=== PATIENT | female | born 1970 | race Caucasian/White ===

== ENCOUNTER 2016-07-21 18:55 | Inpatient (IN) | payer MEDICAID ==
[~2016-07-21] VITALS: Ht 165.1 cm; Wt 83.5 kg
[2016-07-21] MEDS ORDERED: KETOROLAC 30 MG INJ IV STA (20:07)
[2016-07-21] MEDS ORDERED: ONDANSETRON 4 MG INJ IV STA (20:07)
[2016-07-21] MEDS ORDERED: morphine 4 MG/ML VIAL IV STA (20:07)
[2016-07-21] MEDS ORDERED: SOD CHLORIDE 0.9% 100 ML ONE (20:21)
[2016-07-21] MEDS ORDERED: IOHEXOL 300MG/ML 150 ML BTL ONE (20:21)
--- NOTE | 2016-07-21 20:22 | ERD ---
ER Documentation Chief Complaint Date/Time DATE: 07/21/16 TIME: 20:17 Chief Complaint vaginal pain/blister/dysuria since yesterday. HPI 45-year-old female presents to emergency department for complaints of pain in the vaginal area started yesterday. Patient is complaining of pain in the vaginal wall area, throbbing pain, 8/10 scale, is worse upon urination. Patient' s feels that there is a blister in the area. Patient had the same type of symptoms 6 months ago, was given medication for 2 days and it went away, cannot remember what medication was. Patient denies any flank pain. Patient denies hematuria or dysuria. Patient denies any cough or any congestion. Patient denies any sore throat. Patient denies any blood in the urine. Patient denies any pustular discharge from the vaginal area. ROS All systems reviewed and are negative except as per history of present illness. Medications Home Meds Reported Medications [none] Unknown Strength No Conflict Check 07/21/16 Allergies Allergies: Coded Allergies: Penicillins (Verified Allergy, Unknown, 07/21/16) PMhx/Soc History of Surgery: Yes () Anesthesia Reaction: No Hx Neurological Disorder: No Hx Respiratory Disorders: No Hx Cardiac Disorders: No Hx Psychiatric Problems: No Hx Miscellaneous Medical Probl: No Hx Alcohol Use: No Hx Substance Use: No Hx Tobacco Use: No Smoking Status: Never smoker FmHx Family History: No coronary disease, No diabetes, No other Physical Exam Vitals Vital Signs Date Time Temp Pulse Resp B/P Pulse Ox O2 Delivery O2 Flow Rate FiO2 07/21/16 19:04 100.3 128 20 127/88 99 Physical Exam GENERAL: The patient is well developed and appropriate for usual state of health, in no apparent distress. CHEST: Clear to auscultation bilaterally. There are no rales, wheezes or rhonchi. HEART: Regular rate and rhythm. No murmurs, clicks, rubs or gallops. No S3 or S4. ABDOMEN: Soft, nontender and nondistended. Good bowel sounds. No rebound or guarding. No gross peritonitis. No gross organomegaly or masses. No Miller sign or McBurney point tenderness. BACK: No midline or flank tenderness. EXTREMITIES: Equal pulses bilaterally. There is no peripheral clubbing, cyanosis or edema. No focal swelling or erythema. Full range of motion. Grossly neurovascularly intact. NEURO: Alert and oriented. Cranial nerves 2-12 intact. Motor strength in all 4 extremities with 5/5 strength. Sensation grossly intact. Normal speech and gait. SKIN: There is no apparent rash or petechia. The skin is warm and dry. HEMATOLOGIC AND LYMPHATIC: There is no evidence of excessive bruising or lymphedema. No gross cervical, axillary, or inguinal lymphadenopathy. : Noted palpable prolapsed bladder, no cervical motion tenderness, no Bartholin cyst abscess, no lesions, no blisters noted in the perineal area. Cervical os is closed. No adnexal tenderness noted. Result Diagram: 07/21/16201907/21/162019 Results 24 hrs Laboratory Tests Test 07/21/16 20:20 Alanine Aminotransferase (ALT/SGPT) 11IU/L Albumin 4.1g/dl Albumin/Globulin Ratio 0.93 Alkaline Phosphatase 135IU/L Anion Gap 18 Aspartate Amino Transf (AST/SGOT) 14IU/L Basophils # 0.010^3/ul Basophils % 0.2% Blood Morphology Comment Blood Urea Nitrogen 12mg/dl Calcium Level 9.5mg/dl Carbon Dioxide Level 29mmol/L Chloride Level 98mmol/L Creatinine 0.60mg/dl Direct Bilirubin 0.00mg/dl Eosinophils # 0.010^3/ul Eosinophils % 0.1% Globulin 4.40g/dl Glucose Level 306mg/dl Hematocrit 41.4% Hemoglobin 14.0g/dl Indirect Bilirubin 0.7mg/dl Lactic Acid Level 1.4mmol/L Lipase 54U/L Lymphocytes # 1.110^3/ul Lymphocytes % 6.4% Mean Corpuscular Hemoglobin 27.5pg Mean Corpuscular Hemoglobin Concent 33.8g/dl Mean Corpuscular Volume 81.3fl Mean Platelet Volume 8.4fl Monocytes # 0.910^3/ul Monocytes % 5.0% Neutrophils # 15.510^3/ul Neutrophils % 88.3% Nucleated Red Blood Cells # 0.010^3/ul Nucleated Red Blood Cells % 0.0/100WBC Platelet Count 51293^3/UL Potassium Level 3.9mmol/L Red Blood Count 5.1010^6/ul Red Cell Distribution Width 13.1% Sodium Level 141mmol/L Total Bilirubin 0.7mg/dl Total Protein 8.5g/dl White Blood Count 17.510^3/ul Current Medications Medications (Trade) Dose Ordered Sig/Raudel Route PRN Reason Start Time Stop Time Status Last Admin Dose Admin Morphine Sulfate (morphine) 4 mg ONCE STAT IV 07/21/16 20:07 07/21/16 20:09 DC 07/21/16 20:17 Ondansetron HCl (Zofran Inj) 4 mg ONCE STAT IV 07/21/16 20:07 07/21/16 20:09 DC 07/21/16 20:17 Ketorolac Tromethamine (Toradol) 30 mg ONCE STAT IV 07/21/16 20:07 07/21/16 20:09 DC 07/21/16 20:17 IV Flush 10 ml 10 ml STK-MED ONCE .ROUTE 07/21/16 20:21 07/21/16 20:22 DC Sodium Chloride (NS) 100 ml @ ud STK-MED ONCE .ROUTE 07/21/16 20:21 07/21/16 20:22 DC Iohexol (Omnipaque 300mg/ ml) 150 ml STK-MED ONCE .ROUTE 07/21/16 20:21 07/21/16 20:22 DC Patient was given medication for pain here in emergency department, after treatment, patient verbalized feeling much better. Patient's pain is improved.Patient was given Zofran here in the emergency department. After treatment, patient was able to tolerate po fluids here in the emergency department without any vomiting. There is no signs and symptoms of dehydration. Normal saline IV bolus was given here in emergency department for rehydration, patient tolerated IV fluids.Patient was given medicines for fever control here in the emergency department. After treatment, patient temperature improved and lower. Patient appears well and is hemodynamically stable. PROCEDURE: CT Abdomen and Pelvis with Contrast CLINICAL INDICATION: Vaginal pain rule out abscess TECHNIQUE: Transaxial images were obtained through the abdomen and pelvis on a multi-slice scanner following the intravenous administration of iodinated contrast. No oral contrast had previously been given. Sagittal and coronal re- formations were subsequently reconstructed. One or more of the following dose reduction techniques were used: - Automated exposure control. - Adjustment of the mA and/or kV according to patient size. - Use of iterative reconstruction technique. Radiation dose: CTDIvol = 11.00 mGy; DLP = 668.64 mGy-cm. COMPARISON: No prior studies are available for comparison. FINDINGS: Lung bases: The visualized lung bases appear unremarkable. Liver: The liver is enlarged but no focal lesion is identified. Gallbladder: The wall is not thickened. No radiopaque stones are identified. Bile ducts: The intra and extrahepatic bile ducts are normal in caliber. Pancreas: Appears normal with no mass or inflammation evident. Spleen: Normal in size with no focal lesion. Adrenals: Normal with no mass identified. Kidneys, ureters and bladder: The kidneys are lobulated in contour compatible with cortical scarring but no mass, intrarenal calcification, or hydronephrosis is evident. The ureters and bladder are unremarkable. Reproductive organs: The uterus is midline in the endometrial cavity is slightly thickened and dense. No adnexal mass is identified. There is a hypodensity within the region of the peroneum at the midline measuring 2.2 x 2.0 x 1.9 cm with slight peripheral enhancement. Abscess cannot be excluded. Slightly more inferiorly just to the right of midline there is a second similar lesion measuring 1.4 x 1.0 x 1.0 cm. Stomach, bowel, and mesentery: The stomach appears unremarkable. There is no evidence of bowel obstruction or inflammation. Considerable stool is seen within the right colon which is somewhat distended. Appendix: A normal vermiform appendix is evident. Peritoneum: No free intraperitoneal fluid or air is identified. Aorta: Normal in caliber with no aneurysmal dilatation. IVC: Unremarkable. Lymph nodes: No pathologically enlarged nodes are identified. Osseous structures: Mild degenerative anterior spondylosis is noted. IMPRESSION: 1. 2 hypodensities with slight wall enhancement are seen inferior to the vaginal cavity within the peritoneum, one at the midline measuring 2.2 x 2.0 x 1.9 cm and one slightly more inferiorly just to the right of midline measuring 1.4 x 1.0 x 1.0 cm. These are suspicious for a abscesses. 2. Slight thickening of the endometrial cavity in the uterus with increased density suspicious for clot. This may be related to the patients phase of menses. 3. The cecum and proximal ascending colon are distended with stool but there is no evidence of bowel obstruction or inflammation with a normal-appearing vermiform appendix. 4. Lobulated contour to the kidneys suspicious for cortical scarring without evidence of urinary outflow obstruction or ureterolithiasis. The bladder appears unremarkable. Physician Magalie Date Time Electronically viewed and signed by Physician Magalie on 07/21/2016 21:25 RH/ CC: RUBÉN ZELAYA NP I spoke to OB laborist. Patient is to be admitted to the hospital for further evaluation and treatment, soft tissue abscesses noted in the CT scan abdomen and pelvis. Dr. Lyon, OB Laborist will admit the patient to the hospital for further evaluation and treatment. Patient will be transferred to ER 1 pending admission. Procedures/MDM Medical Decision Making: Patient symptoms most likely consistent with abscesses in the vaginal area as seen the CT scan abdomen and pelvis, patient has elevated heart rate, tachycardic and febrile, patient will be admitted to the hospital, Dr. Lyon will admit the patient to the hospital. Patient stable at this time. Departure Diagnosis: Primary Impression: Abscess of vagina Condition: Fair RUBÉN ZELAYA NP Jul 21, 2016 20:22
[2016-07-21 20:30] LABS: BASOPHILS % 0.2 % (0.0-2.0); EOSINOPHILS % 0.1 % (0.0-7.0); HEMATOCRIT 41.4 % (37.0-47.0); LYMPHOCYTES # 1.1 10^3/ul (0.8-2.9); LYMPHOCYTES % 6.4 % (15.0-51.0); MEAN CORPUSCULAR HEMOGLOBIN 27.5 pg (29.0-33.0); MEAN CORPUSCULAR HGB CONC 33.8 g/dl (32.0-37.0); MEAN CORPUSCULAR VOLUME 81.3 fl (82.0-101.0); MEAN PLATELET VOLUME 8.4 fl (7.4-10.4); MONOCYTE # 0.9 10^3/ul (0.3-0.9); NEUTROPHIL # 15.5 10^3/ul (1.6-7.5); NEUTROPHILS % 88.3 % (39.0-77.0); PLATELET COUNT 317 10^3/UL (140-440); RED CELL DISTRIBUTION WIDTH 13.1 % (11.5-14.5); UNCORRECTED WBC 17.5 10^3/ul (4.8-10.8); WHITE BLOOD COUNT 17.5 10^3/ul (4.8-10.8)
[2016-07-21 20:31] LABS: CONDITION 1; LH ANALYZER COMMENTS 1
[2016-07-21 20:39] LABS: ALBUMIN 4.1 g/dl (3.3-4.9)
[2016-07-21 20:40] LABS: POTASSIUM 3.9 mmol/L (3.5-5.1)
[2016-07-21 20:42] LABS: BILIRUBIN,INDIRECT 0.7 mg/dl (0-1.1); BILIRUBIN,TOTAL 0.7 mg/dl (0.2-1.3); CREATININE 0.6 mg/dl (0.44-1.00); TOTAL PROTEIN 8.5 g/dl (6.1-8.1)
[2016-07-21 20:43] LABS: ALBUMIN/GLOBULIN RATIO 0.93; CALCIUM 9.5 mg/dl (8.4-10.2)
[2016-07-21 21:23] LABS: ADD UMIC YES; URINE BILIRUBIN (Dip) NEGATIVE (NEGATIVE); URINE BLOOD (Dip) TRACE (NEGATIVE); URINE COLOR LT. YELLOW (YELLOW); URINE GLUCOSE (Dip) >=1000 % (NEGATIVE); URINE KETONES (Dip) 40 (NEGATIVE); URINE LEUKOCYTE ESTERASE (Dip) NEGATIVE (NEGATIVE); URINE NITRITE (Dip) NEGATIVE (NEGATIVE); URINE TOTAL PROTEIN (Dip) 1+ (NEGATIVE); URINE UROBILINOGEN (Dip) 0.2 E.U./dL (0.1-1.0)
--- NOTE | 2016-07-21 21:25 | RADRPT ---
PROCEDURE: CT Abdomen and Pelvis with Contrast CLINICAL INDICATION: Vaginal pain rule out abscess TECHNIQUE: Transaxial images were obtained through the abdomen and pelvis on a multi-slice scanner following the intravenous administration of iodinated contrast. No oral contrast had previously be en given. Sagittal and coronal re-formations were subsequently reconstructed. One or more of the following dose reduction techniques were used: - Automated exposure control. - Adjustment of the mA and/or kV according to patient size. - Use of iterative reconstruction technique. Radiation dose: CTDIvol = 11.00 mGy; DLP = 668.64 mGy-cm. COMPARISON: No prior studies are available for comparison. FINDINGS: Lung bases: The visualized lung bases appear unremarkable. Liver: The liver is enlarged but no focal lesion is identified. Gallbladder: The wall is not thickened. No radiopaque stones are identified. Bile ducts: The intra and extrahepatic bile ducts are normal in caliber. Pancreas: Appears normal with no mass or inflammation evident. Spleen: Normal in size with no focal lesion. Adrenals: Normal with no mass identified. Kidneys, ureters and bladder: The kidneys are lobulated in contour compatible with cortical scarring but no mass, intrarenal calcification, or hydronephrosis is evident. The ureters and bladder are u nremarkable. Reproductive organs: The uterus is midline in the endometrial cavity is slightly thickened and dense . No adnexal mass is identified. There is a hypodensity within the region of the peroneum at the m idline measuring 2.2 x 2.0 x 1.9 cm with slight peripheral enhancement. Abscess cannot be excluded. Slightly more inferiorly just to the right of midline there is a second similar lesion measuring 1 .4 x 1.0 x 1.0 cm. Stomach, bowel, and mesentery: The stomach appears unremarkable. There is no evidence of bowel obst ruction or inflammation. Considerable stool is seen within the right colon which is somewhat disten ded. Appendix: A normal vermiform appendix is evident. Peritoneum: No free intraperitoneal fluid or air is identified. Aorta: Normal in caliber with no aneurysmal dilatation. IVC: Unremarkable. Lymph nodes: No pathologically enlarged nodes are identified. Osseous structures: Mild degenerative anterior spondylosis is noted. IMPRESSION: 1. 2 hypodensities with slight wall enhancement are seen inferior to the vaginal cavity within the peritoneum, one at the midline measuring 2.2 x 2.0 x 1.9 cm and one slightly more inferiorly just to the right of midline measuring 1.4 x 1.0 x 1.0 cm. These are suspicious for a abscesses. 2. Slight thickening of the endometrial cavity in the uterus with increased density suspicious for clot. This may be related to the patients phase of menses. 3. The cecum and proximal ascending colon are distended with stool but there is no evidence of negrita l obstruction or inflammation with a normal-appearing vermiform appendix. 4. Lobulated contour to the kidneys suspicious for cortical scarring without evidence of urinary ou tflow obstruction or ureterolithiasis. The bladder appears unremarkable. Physician Magalie Date Time Electronically viewed and signed by Physician Magalie on 07/21/2016 21:25 /
[2016-07-21 21:50] LABS: BACTERIA,URINE RARE; SQUAMOUS EPITHELIAL CELL,UR FEW; URINE RBCS 0-2 /HPF (0)
[2016-07-21 22:29] VITALS: TEMP 100
[2016-07-21] MEDS ORDERED: LORAZEPAM 2 MG INJ IV ONE (23:00)
[2016-07-22 00:16] VITALS: Ht 165.1 cm; Wt 83.5 kg
[2016-07-22 00:17] VITALS: BP 108/58; PULSE 92; RESP 18
[2016-07-22] MEDS ORDERED: KETOROLAC 30 MG INJ IV PRN (02:00)
[2016-07-22] MEDS ORDERED: morphine 2 MG INJ IV PRN (02:00)
[2016-07-22] MEDS: LACTATED RINGER'S 1,000 ML IV SCH ×3 (02:08→18:15)
[2016-07-22 06:05] VITALS: BP 100/54; PULSE 98
[2016-07-22 08:36] VITALS: BP 97/55
[2016-07-22] MEDS: GENTAMICIN 80 MG/NS (PMX) 50 ML IVPB SCH ×2 (10:20→18:14)
[2016-07-22] MEDS: CLINDAMYCIN 900 MG/D5W (PMX) 50 ML IVPB SCH ×3 (10:21→18:14)
--- NOTE | 2016-07-22 15:26 | QN ---
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 came in with a presumed pelvic infection/PID/abcess? and now found to have a new onset DM with a HgbA1c of 11.7. Pt started on antibiotics and a consult called with Dr Dubon. Diabetic diet ordered, glucose monitoring, diabetic education. Will await initiation of meds until Dr Dubon sees her. Full H&P dictated earlier. JARRET Rod MD Jul 22, 2016 15:26
--- NOTE | 2016-07-22 17:40 | HP ---
DATE OF ADMISSION: 07/21/2016 HISTORY OF PRESENT ILLNESS: The patient is a 37-year-old 1, para 1, came into the emergency room complaining of pain in the vaginal area for the last 2 days. She describes in the vaginal area, 8/10, worse with urination but says it is not burning with urination. She states the lower abdominal area is fine. The patient reported a somewhat similar discomfort in the same area 6 months ago, was given medication for a couple of days and it went away, but upon further questioning, it seemed to be just a yeast infection or some kind of superficial vaginal infection. The patient denies any flank pain. No hematuria or dysuria as previously noted. She denies any vaginal discharge. She does report over the last 6 months that sex has become more uncomfortable. PAST MEDICAL HISTORY: Negative. The patient denies any history of diabetes. PAST SURGICAL HISTORY: None except a for her one child who is age 19. ALLERGIES: PENICILLIN. GYNECOLOGIC HISTORY: The patient says her period used to be regular, and now for the last year and a half they have been every 6 weeks to 8 weeks and tend to be heavier than they used to be. She reports that she has had 2 main relationships. The previous one was with her and after her child, she never got again. She has been with this last boyfriend for a few years , and they use condoms occasionally but generally no control, and she has never gotten , and she describes trying off and on for the last 3 years. The patient reports she had a Pap smear 2 years ago. Temperature when she came in the hospital was 100.3 and blood pressure 117/72 and 99% oxygenation on room air. White blood count was 17.5, hemoglobin 14, platelets 317,000. On urine, she was noted to have some ketones and 1+ protein , and her blood sugar level was high. The random glucose when she came into the ER was 306. The patient was hydrated with IV hydration, given some morphine for pain and reported that she was feeling much better. She was given some Zofran as well for the nausea from the pain medication. CT scan was done which showed a normal-appearing appendix, a lobulated contour to the kidneys suspicious for cortical scarring without evidence of urinary outflow obstruction or kidney stones, the bladder was unremarkable, and the uterine lining was slightly thickened with increased density suspicious for a clot that could be related to the phase of her cycle, but not specifically abnormal. There are also 2 hypodensities with slight wall enhancement seen inferior to the vaginal cavity within the peritoneum, one at midline measuring 2.2 x 2.0 x 1.9 cm, one slightly more inferiorly just to the right of midline measuring 1.4 x 1.0 x 1.0 cm suspicious for abscesses. PHYSICAL EXAMINATION: On pelvic exam done in the room, so not able to do a proper speculum exam, patient's uterus felt normal and was completely nontender. She had no cervical motion tenderness. Cervix palpated normally. Posterior wall of the vagina was normal anteriorly, and underlying the urethra, the area seemed swollen, not overtly firm but a little more full than normal, and this is the area of distinct tenderness on exam to her, is along the urethra from the opening inside a couple of inches. There is an area that looks like possibly a herpetic lesion on the base of this and is very distinctly tender. I couldn't tell if it was an opening for drainage from an abscess or if it was a herpetic lesion. Generally there was lots of white thin discharge present. I did a vaginal culture of the vault and a herpes culture of that lesion. After seeing the glucose values, I ordered a hemoglobin A1c which is 11.7. ASSESSMENT: 1. New-onset diabetes. 2. Possible pelvic abscess, possibly some other etiology in the periurethral area. PLAN: IV hydration with LR at 125 an hour, a 2000 calorie ADA diet, glucose monitoring, an endocrinology consultation to Dr. Dubon (already called in by me) , IV antibiotics. As SHE IS ALLERGIC TO PENICILLIN, I gave her clindamycin and gentamicin. A vaginal culture and herpes cultures were done. Had discussion with the patient about the new onset of diabetes and could be a cause of a pelvic infection. Would opt more for treating an infection, seeing if things resolve, but explained to her very clearly that if the area underlying the urethra does not resolve with antibiotics and control of her blood sugars, there is always the possibility of something else more serious underlying that area and may need further evaluation. As there is no overt lesion visible at this point in time that we would proceed with more obvious problems first and go further as needed, and I explained to her that some of that may need to be done as an outpatient, and she indicated a clear understanding of that. Dictated By: JARRET BRAUN/JANA Conf#: [id number] DID#: [id number] MTDD
[2016-07-22] MEDS: ACCUCHECK XX SCH ×2 (18:10→21:00)
[2016-07-22 19:41] VITALS: BP 111/66
--- NOTE | 2016-07-22 20:40 | CONS ---
Date/Time of Note Date/Time of Note DATE: 07/22/16 TIME: 20:34 Assessment/Plan Assessment/Plan Problems: (1) Diabetes mellitus type 2 in obese Status: Chronic Comment: Given the A1c this is been present for some time which is borne out by the review of systems. She needs to be initiated on treatment and start with diabetes education. She is actually an extremely bright woman by my estimation and should be relatively easy to treat. We will get her started with oral agent therapy and tighten up as best we can. Please note part of her hyperglycemia now may be due to infection which is being managed by Dr. Lyon et. al. (2) Obesity (BMI 30.0-34.9) Status: Chronic Comment: Counseled her about the interplay of weight with insulin resistance syndrome Consultation Date/Type/Reason Admit Date/Time Jul 21, 2016 at 21:36 Date of Consultation: Jul 22, 2016 Type of Consultation: Endocrinology Reason for Consultation New diagnosis diabetes mellitus type 2 out of control Referring Provider: JARRET VASQUEZ MD Hx of Present Illness 45[facility] who lives with her son and significant other. She is extremely busy with her life and has not been taking medical care of herself for some time. Please see the history of present illness. She reports that she has had over a year of polyuria with nocturia. She denies any family history known of diabetes mellitus type 2. Of note her significant other is a type II diabetic who has successfully adjusted his lifestyle and has done better over the last year. (Probably under the careful guidance of the patient) Constitutional: no complaints (Denies fever chills or sweats) Eyes: no complaints (Denies changes in vision or blurry vision) ENT: no complaints Respiratory: no complaints Cardiovascular: no complaints Gastrointestinal: no complaints Genitourinary: other (Polyuria with nocturia 2-3 times per night) Musculoskeletal: no complaints Skin: no complaints Neurologic: no complaints Endocrine: dry skin, polydypsia, polyuria Additional Comments See PHOTO OPTICS TECHNICIAN review of systems Past Medical History Ab0 Past Surgical History Status post 19 years ago Family History Significant Family History: cancer (Reported history of gastric cancer lung cancer.), other (Specifically denies any family history of diabetes) Social History Alcohol Use: none Smoking Status: Never smoker Drug Use: none Other Social History Born [facility] and raised to age 5 and grew up in [facility]. Graduate equivalent degree. 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 Exam/Review of Systems Vital Signs Vitals Vital Signs Date Time Temp Pulse Resp B/P Pulse Ox O2 Delivery O2 Flow Rate FiO2 07/22/16 19:41 98.0 85 16 111/66 98 07/22/16 06:05 Room Air Intake and Output 07/21/16 07/21/16 07/22/16 15:00 23:00 07:00 Intake Total 375 ml Balance 375 ml Exam Constitutional: alert, oriented Neck: non-tender, supple Respiratory: clear to auscultation, normal air movement Cardiovascular: nl pulses, regular rate and rhythm Gastrointestinal: nl liver, spleen, non-tender, soft Results Result Diagram: 07/21/16201907/21/162019 Results 24 hrs Laboratory Tests Test 07/22/16 02:16 07/22/16 11:10 07/22/16 17:50 07/22/16 19:57 Bedside Glucose 247 H 320 H 335 H Hemoglobin A1c 11.7 H Medications Medications Current Medications Lactated Ringer's (Lr) 1,000 ml @ 125 mls/hr Q8H IV Last administered on 18:15; Admin Dose 125 MLS/HR; Start 07/22/16 at 02:00 Ketorolac Tromethamine (Toradol) 30 mg Q6H PRN IV PAIN Last administered on 05:41; Admin Dose 30 MG; Start 07/22/16 at 02:00; Stop 07/25/16 at 01:59 Morphine Sulfate 2 mg 2 mg Q3H PRN IV PAIN LEVEL 4-6 Last administered on 09:01; Admin Dose 2 MG; Start 07/22/16 at 02:00 Clindamycin HCl/ Dextrose 50 ml @ 50 mls/hr Q6 IVPB Last administered on 18:14; Admin Dose 50 MLS/HR; Start 07/22/16 at 09:00 Gentamicin Sulfate (Gentamicin) 50 ml @ 104 mls/hr Q8H IVPB Last administered on 07/22/16 18:14; Admin Dose 104 MLS/HR; Start 07/22/16 at 10:00 Miscellaneous Information (*Rx Drug Level Order Reminder*) GENTAMICIN TROUGH AT 0... ONCE XX ; Start 07/23/16 at 09:00; Stop 07/23/16 at 12:00 JOHN GOMEZ MD Jul 22, 2016 20:40
[2016-07-22] MEDS ORDERED: GLUCOSE GEL 15 GRAM TUBE BUCCAL PRN (21:00)
[2016-07-22] MEDS ORDERED: metFORMIN 500 MG TAB PO ONE (21:00)
[2016-07-22] MEDS ORDERED: DEXTROSE 50% 50 ML SYRINGE IV PRN ×2 (21:00)
[2016-07-22] MEDS ORDERED: AZITHROMYCIN 250 MG TAB PO ONE (21:00)
[2016-07-22] MEDS ORDERED: GLUCAGON 1 MG INJ IM PRN (21:00)
[2016-07-22] MEDS: INSULIN ASPART [NOVOLOG] 3 ML PEN SC SCH (21:00)
[2016-07-22] MEDS ORDERED: GLUCOSE GEL 15 GRAM TUBE PO PRN ×2 (21:00)
[2016-07-23] MEDS: CLINDAMYCIN 900 MG/D5W (PMX) 50 ML IVPB SCH ×3 (00:21→13:03)
[2016-07-23] MEDS: LACTATED RINGER'S 1,000 ML IV SCH ×2 (02:00→10:25)
[2016-07-23] MEDS ORDERED: ACCUCHECK XX SCH (02:00)
[2016-07-23] MEDS: GENTAMICIN 80 MG/NS (PMX) 50 ML IVPB SCH ×2 (02:02→10:25)
[2016-07-23 05:45] LABS: BASOPHILS % 0.3 % (0.0-2.0); EOSINOPHILS # 0.2 10^3/ul (0.0-0.5); EOSINOPHILS % 2.5 % (0.0-7.0); HEMATOCRIT 35.8 % (37.0-47.0); HEMOGLOBIN 11.9 g/dl (12.0-16.0); LYMPHOCYTES % 26.3 % (15.0-51.0); MEAN CORPUSCULAR HEMOGLOBIN 27.2 pg (29.0-33.0); MEAN CORPUSCULAR HGB CONC 33.3 g/dl (32.0-37.0); MEAN CORPUSCULAR VOLUME 81.7 fl (82.0-101.0); MEAN PLATELET VOLUME 8.4 fl (7.4-10.4); MONOCYTE # 0.5 10^3/ul (0.3-0.9); MONOCYTES % 6.8 % (0.0-11.0); NEUTROPHIL # 4.9 10^3/ul (1.6-7.5); NEUTROPHILS % 64.1 % (39.0-77.0); PLATELET COUNT 277 10^3/UL (140-440); RED BLOOD COUNT 4.38 10^6/ul (4.20-5.40); RED CELL DISTRIBUTION WIDTH 13.1 % (11.5-14.5); UNCORRECTED WBC 7.6 10^3/ul (4.8-10.8); WHITE BLOOD COUNT 7.6 10^3/ul (4.8-10.8)
[2016-07-23 05:50] LABS: ALBUMIN 3.3 g/dl (3.3-4.9); CONDITION 1; LH ANALYZER COMMENTS 1
[2016-07-23 05:51] LABS: POTASSIUM 4.2 mmol/L (3.5-5.1)
[2016-07-23 05:53] LABS: BILIRUBIN,INDIRECT 0.7 mg/dl (0-1.1); BILIRUBIN,TOTAL 0.7 mg/dl (0.2-1.3); CREATININE 0.55 mg/dl (0.44-1.00)
[2016-07-23 05:54] LABS: ALBUMIN/GLOBULIN RATIO 0.82; TOTAL PROTEIN 7.3 g/dl (6.1-8.1)
[2016-07-23 06:08] LABS: T3 UPTAKE 39.5 % (23.5-40.5)
[2016-07-23 06:09] LABS: CHOL/HDL RATIO 5.8 RATIO
[2016-07-23 06:21] LABS: C-REACTIVE PROTEIN 16.2 mg/dl (0.0-0.9)
[2016-07-23 06:22] LABS: THYROID STIMULATING HORMONE 1.25 MIU/L (0.465-4.680)
[2016-07-23] MEDS: ACCUCHECK XX SCH ×4 (07:20→14:16)
[2016-07-23] MEDS ORDERED: metFORMIN 500 MG TAB PO SCH (07:50)
[2016-07-23 08:24] VITALS: BP 94/52
[2016-07-23] MEDS ORDERED: [UNRECOGNIZED DRUG - REMARK] XX SCH (09:00)
[2016-07-23] MEDS: INSULIN ASPART [NOVOLOG] 3 ML PEN SC SCH ×2 (09:52→13:11)
--- NOTE | 2016-07-23 13:22 | CONS ---
Date/Time of Note Date/Time of Note DATE: 07/23/16 TIME: 13:21 Assessment/Plan Assessment/Plan Chief Complaint/Hosp Course 45-year-old [place] woman who lives with her son and significant other. She is extremely busy with her life and has not been taking medical care of herself for some time. Please see the history of present illness. She reports that she has had over a year of polyuria with nocturia. She denies any family history known of diabetes mellitus type 2. Of note her significant other is a type II diabetic who has successfully adjusted his lifestyle and has done better over the last year. (Probably under the careful guidance of the patient) Problems: (1) Diabetes mellitus type 2 in obese Status: Chronic Comment: Her sugars are down 100 points but clearly not yet at goal. I was actually given her financial situation trying to use the least expensive medications possible however for now will use insulin in the hospital. On discharge given her lack of insurance organ have to go for less expensive medications. Consultation Date/Type/Reason Admit Date/Time Jul 21, 2016 at 21:36 Initial Consult Date 07/22/16 Type of Consultation: Endocrinology Reason for Consultation Diabetes mellitus type 2 new diagnosis with significant hyperglycemia. Referring Provider: JARRET VASQUEZ MD 24 HR Interval Summary Constitutional: no complaints Detailed Summary Respiratory: no complaints Cardiovascular: no complaints Gastrointestinal: no complaints Exam/Review of Systems Vital Signs Vitals Vital Signs Date Time Temp Pulse Resp B/P Pulse Ox O2 Delivery O2 Flow Rate FiO2 07/23/16 08:24 98.0 82 18 94/52 98 07/22/16 06:05 Room Air Intake and Output 07/22/16 07/22/16 07/23/16 15:00 23:00 07:00 Intake Total 1100 ml 1810 ml Output Total 1000 ml 1300 ml Balance 100 ml 510 ml Exam Constitutional: alert, oriented Respiratory: clear to auscultation, normal air movement Cardiovascular: nl pulses, regular rate and rhythm Results Result Diagram: 07/23/16 0500 07/23/16 0500 Results 24 hrs Laboratory Tests Test 07/22/16 17:50 07/22/16 19:57 07/22/16 22:10 07/23/16 05:00 Bedside Glucose 320 H 335 H 374 H Alanine Aminotransferase (ALT/SGPT) 18 Albumin 3.3 Albumin/Globulin Ratio 0.82 Alkaline Phosphatase 102 Anion Gap 13 Aspartate Amino Transf (AST/SGOT) 11 L Basophils # 0.0 Basophils % 0.3 Blood Morphology Comment Blood Urea Nitrogen 15 C-Reactive Protein 16.2 H Calcium Level 9.0 Carbon Dioxide Level 30 Chloride Level 102 Cholesterol Level 199 Cholesterol/HDL Ratio 5.8 Creatinine 0.55 Direct Bilirubin 0.00 Eosinophils # 0.2 Eosinophils % 2.5 Erythrocyte Sedimentation Rate 93 H Free Thyroxine Index 2.21 Globulin 4.00 H Glucose Level 222 H HDL Cholesterol 34 Hematocrit 35.8 L Hemoglobin 11.9 L Indirect Bilirubin 0.7 LDL Cholesterol, Calculated 140 Lymphocytes # 2.0 Lymphocytes % 26.3 Mean Corpuscular Hemoglobin 27.2 L Mean Corpuscular Hemoglobin Concent 33.3 Mean Corpuscular Volume 81.7 L Mean Platelet Volume 8.4 Monocytes # 0.5 Monocytes % 6.8 Neutrophils # 4.9 Neutrophils % 64.1 Nucleated Red Blood Cells # 0.0 Nucleated Red Blood Cells % 0.0 Platelet Count 277 Potassium Level 4.2 Red Blood Count 4.38 Red Cell Distribution Width 13.1 Sodium Level 141 Thyroid Stimulating Hormone (TSH) 1.250 Thyroxine (T4) 5.6 Total Bilirubin 0.7 Total Protein 7.3 # Triglycerides Level 123 Triiodothyronine (T3) Uptake 39.5 White Blood Count 7.6 # Test 07/23/16 08:20 07/23/16 09:15 07/23/16 10:18 07/23/16 11:04 Bedside Glucose 217 248 H Gentamicin Level Trough 0.8 L Gentamicin Level Peak 1.4 L Test 07/23/16 11:57 Bedside Glucose 247 H Medications Medications Current Medications Lactated Ringer's (Lr) 1,000 ml @ 125 mls/hr Q8H IV Last administered on 10:25; Admin Dose 125 MLS/HR; Start 07/22/16 at 02:00 Ketorolac Tromethamine (Toradol) 30 mg Q6H PRN IV PAIN Last administered on 05:41; Admin Dose 30 MG; Start 07/22/16 at 02:00; Stop 07/25/16 at 01:59 Morphine Sulfate 2 mg 2 mg Q3H PRN IV PAIN LEVEL 4-6 Last administered on 09:01; Admin Dose 2 MG; Start 07/22/16 at 02:00 Clindamycin HCl/ Dextrose (Cleocin 900 Mg/ D5W (Pmx)) 50 ml @ 50 mls/hr Q6 IVPB Last administered on 07/23/16 13:03; Admin Dose 50 MLS/HR; Start 07/22/16 at 09:00 Diagnostic Test (Pha) (Accucheck) 1 ea 02 XX ; Start 07/23/16 at 02:00 Miscellaneous Information 1 ea NOTE XX ; Start 07/22/16 at 21:00 Glucose (Glutose) 15 gm Q15M PRN PO DECREASED GLUCOSE; Start 07/22/16 at 21:00 Glucose (Glutose) 22.5 gm Q15M PRN PO DECREASED GLUCOSE; Start 07/22/16 at 21: 00 Dextrose (D50w Syringe) 25 ml Q15M PRN IV DECREASED GLUCOSE; Start 07/22/16 at 21:00 Dextrose (D50w Syringe) 50 ml Q15M PRN IV DECREASED GLUCOSE; Start 07/22/16 at 21:00 Glucagon (Glucagen) 1 mg Q15M PRN IM DECREASED GLUCOSE; Start 07/22/16 at 21:00 Glucose (Glutose) 15 gm Q15M PRN BUCCAL DECREASED GLUCOSE; Start 07/22/16 at 21 :00 Insulin Glargine (Lantus) 10 unit HS SC Last administered on 07/22/16 22:40; Admin Dose 10 UNIT; Start 07/23/16 at 21:00 Miscellaneous Information (*Rx Drug Level Order Reminder*) GENT TROUGH @ 0,900 ON... ONCE ONCE XX ; Start 07/24/16 at 09:00; Stop 07/24/16 at 09:01 Miscellaneous Information (*Rx Drug Level Order Reminder*) GENT PEAK @ 1,100 ON 07/24/16 ONCE ONCE XX ; Start 07/24/16 at 11:00; Stop 07/24/16 at 11:01 JOHN GOMEZ MD Jul 23, 2016 13:22
[2016-07-23] MEDS ORDERED: GENTAMICIN IN NACL, ISO-OSM 50 ML IVPB SCH (18:00)
[2016-07-23] MEDS ORDERED: INSULIN GLARGINE [LANtus] 3 ML PEN SC SCH ×2 (21:00)
--- NOTE | 2016-07-25 19:27 | CONS ---
DATE OF ADMISSION: 07/21/2016 DATE OF CONSULTATION: 07/23/2016 This patient is a 45-year-old 1, para 1 who came on 07/21, that's 2 days ago, complaining of pain and discomfort in her vulvar and genital area as well as lower abdomen. Review of her past medical history did not reveal any major medical problem. Her only delivery ended by section at age 18,. The lab work showed that her blood glucose was elevated. Her hemoglobin A1c was 11.7. She was placed on antidiabetic regiment and medications, including antibiotic. She is now gradually improving. This progress note is describing her condition on 07/23/2016. On that day, she was doing fairly well when I examined her. She did not have any pain and discomfort, and I explained to her that due to the diabetes that she developed vulvovaginitis . I prescribed Mycostatin to be used vaginally. Internal Medicine is also in consultation for the control of her diabetes. Dictated By: ZANDRA WILLINGHAM/JANA Conf#: [id number] DID#: [id number] MTDD
--- NOTE | 2016-07-31 06:51 | DS ---
DATE OF ADMISSION: 07/21/2016 DATE OF DISCHARGE: 07/23/2016 The patient left AMA ____. ADMISSION DIAGNOSES: 1. New onset diabetes. 2. Possible pelvic abscess. 3. Vaginal pain. HOSPITAL COURSE: The patient was admitted for vaginal pain, was found to have new onset diabetes. She had a CAT scan which showed a possible pelvic abscess, not very large however. The patient was initiated on antibiotics, clindamycin and gentamicin. Vaginal culture and herpes cultures were done as she had a raw area underlying the urethra. Initiated on a diet, had diabetic counseling and an endocrinology consult with Dr. Dubon. Initially temperature was 100.3. White blood count 17.5. Initial blood sugars were 300 to 400. She did have some ketones in the initial urine. Diabetic counselor spoke to her, Dr. Dubon came to see her and has initiated her on medications. With initiation of dietary changes only her blood sugars came down about 100 points, but were not clearly at goal and apparently the patient had concerns about having diabetic medications and the cost of them and Dr. Dubon decided to give her insulin while she was in the hospital to get her blood sugar down and then put her on some less expensive medications. Her white blood count dropped to 7.6 on the next day after admission and blood sugars were in the low 200s in the morning. The patient was feeling better. She was afebrile. Her discomfort was improving. Her blood sugars were coming down and then on 07/23, she decided she was going to leave against medical advice, even before either I or Dr. Dubon were able to get over there to give her at least prescriptions for oral antibiotics and oral diabetic medications to control her blood sugars. She insisted that she could not stay 1 minute longer, so she has no specific followup care and was not given any medications, so we just hope she has gone out into the world following the dietary recommendations and will get on medications sooner rather than later. Dictated By: JARRET BRAUN/NTS Conf#: [id number] DID#: [id number] CC: JARRET VASQUEZ MD; JOHN DUBON MD;*EndCC* MTDD
== END 2016-07-23 16:30 | disposition left against medical advice (07) | DRG 759 ==
LOC: FTE 18:55 → MS1 21:36
PROVIDERS: ADMIT Obstetrics & Gynecology; ATTEND Obstetrics & Gynecology
DX: N73.9 Female pelvic inflammatory disease, unspecified (principal); E11.65 Type 2 diabetes mellitus with hyperglycemia; N76.0 Acute vaginitis; R30.0 Dysuria; R35.8 Other polyuria; R35.1 Nocturia; E66.9 Obesity, unspecified; Z88.0 Allergy status to penicillin; Z68.30 Body mass index [BMI] 30.0-30.9, adult; Z80.0 Family history of malignant neoplasm of digestive organs; Z80.1 Family history of malignant neoplasm of trachea, bronchus and lung
CPT/HCPCS: 36415; 74177; 80053; 80061; 80170; 81001; 81003; 82962; 83036; 83605; 83690; 84436; 84443; 84479; 85025; 85651; 86140; 86803; 87081; 87255; 87340; 87591; 96374; 96375; J1580; J1815; J1885; J2060; J2270; J2405; J7120; Q9967